=== PATIENT | male | born 1955 | race Caucasian/White ===

== ENCOUNTER 2017-03-14 21:02 | Observation (INO) ==
--- NOTE | 2017-03-14 21:37 | Emergency Department Note ---
Disposition Clinical Impression: Recent inferior myocardial infarction Disposition: Admitted As Inpatient Condition: Good Time of Disposition: 22:00 Chest Pain HPI - General Chief Complaint: ED General Medical Stated Complaint: Urgent Care URI / OR Time Seen by Provider: 03/14/17 21:12 Source: patient Limitations: no limitations Vital Signs Reviewed: Yes Nursing Notes Reviewed: Yes - History of Present Illness HPI Narrative: Pt had chest pain around 1 am on Tuesday morning at rest; he had pain in his mild b/l chest and right jaw for 30 mins and no subsequent sx; no such sx prior or since that time; over the weekend he had a dry cough/body aches and a fever which resolved today............but his family told him to get seen today due to his sx on Tuesday; no prior stress test or heart cath; pt is a smoker;will perform screening labs ; ekg shows no acute injury pattern; pt will at least require a stress test; I discussed w/ pt his options for admission and further eval stress testing vs outpt manamgement w/ all risks/benefits discussed, and pt opts for close outpt mngmt and agrees to return to ER immediately for any add 'l sx or concerns; Duration: now resolved Onset: during rest Pain Location: substernal Severity: mild Severity scale (1-10): 0 Quality: tightness Pain Radiation: none Improves with: nothing Worsens with: nothing Context: recent illness Associated symptoms: Denies: nausea, vomiting, diaphoresis, dyspnea, sense of impending doom, syncope, palpitations, leg swelling - Related Data Home Medications Medication Instructions Recorded Confirmed No Known Home Drugs 03/14/17 03/14/17 Allergies Allergy/AdvReac Type Severity Reaction Status Date / Time Sulfa (Sulfonamide Allergy Hives Verified 02/27/16 09:47 Antibiotics) Constitutional: Reports: as per HPI Eyes: Denies: eye pain, eye discharge, vision change ENT ED: Denies: ear pain, throat pain, dental pain, hearing loss, epistaxis, congestion, dysphagia Cardiovascular: Reports: as per HPI, chest pain Respiratory: Denies: cough, dyspnea, wheezes, hemoptysis, stridor Gastrointestinal: Denies: abdominal pain, nausea, vomiting, diarrhea, constipation, hematemesis, melena, hematochezia Genitourinary: Denies: urgency, dysuria, frequency, hematuria Musculoskeletal: Denies: back pain, neck pain, arthralgia, myalgia Integumentary: Denies: rash, abrasion, lesions Neurological: Denies: headache, weakness, numbness, paresthesias, confusion, abnormal gait, vertigo Psychiatric: Denies: anxiety, depression, suicidal thoughts, homicidal thoughts , auditory hallucinations, visual hallucinations Endocrine: Denies: fatigue Hematological/Lymphatic: Denies: easy bleeding, easy bruising Allergic/Immunologic: Denies: facial swelling, urticaria Chest Pain PMH - Past Medical History Medical history: Reports: asthma Psychiatric history: Reports: no psych history - Social History Smoking Status: Current every day smoker Alcohol use: Reports: none Drug use: Reports: none Physical Exam - General Limitations: no limitations General appearance: alert, in no apparent distress - Head Head exam: atraumatic, normocephalic, normal inspection - Eye Eye exam: Present: normal appearance, PERRL, EOMI - Expanded Eye Exam Pupils: Left: reactive - ENT ENT exam: normal exam, normal oropharynx, mucous membranes moist - Expanded ENT Exam External ear exam: Present: normal external inspection Mouth exam: Present: normal external inspection Teeth exam: Present: normal inspection Throat exam: Present: normal inspection - Neck Neck exam: Present: normal inspection, full ROM, trachea midline - Chest Chest inspection: Present: normal inspection, symmetric chest wall rise - Respiratory Respiratory exam: Present: normal lung sounds bilaterally - Cardiovascular Cardiovascular exam: Present: regular rate, normal rhythm, normal heart sounds - Abdominal Exam Abdominal exam: Present: soft, Non-Tender. Absent: tenderness, distention, guarding, rebound, rigidity - Extremities Exam Extremities exam: Present: normal inspection, full ROM. Absent: tenderness, pedal edema - Expanded Upper Extremity Exam Shoulder exam: Present: normal inspection, full ROM Arm exam: Present: normal inspection, full ROM Elbow exam: Present: normal inspection, full ROM Forearm/Wrist exam: Present: normal inspection, full ROM Hand exam: Present: normal inspection, full ROM Vascular exam: Normal: capillary refill, radial pulse - Expanded Lower Extremity Exam Hip/Pelvis exam: Present: normal inspection, full ROM Upper leg exam: Present: normal inspection, full ROM Knee exam: Present: normal inspection, full ROM Lower leg exam: Present: normal inspection, full ROM Ankle exam: Present: normal inspection, full ROM Foot/toe exam: Present: normal inspection, full ROM Neurovascular/Tendon exam: Absent: motor deficit, sensory deficit, tendon deficit - Back Exam Back exam: Present: normal inspection, full ROM. Absent: tenderness - Neurological Exam Neurological exam: Present: alert, oriented X3 - Expanded Neurological Exam Patient oriented to: Present: person, place, time Coma Scale Eye Opening: Spontaneous Coma Scale Motor Response: Obeys Commands Coma Scale Verbal Response: Oriented Coma Scale Total: 15 - Psychiatric Psychiatric exam: Present: normal affect, normal mood - Skin Skin exam: Present: warm, dry, intact, normal color Course Course Narrative: Pt has been pain free for 3 days Accepted to floor by Dr Nina @ 10:22 pm; ASA and plavix ordered Vital Signs Temperature 98.0 F 03/14/17 21:04 Pulse Rate 80 03/14/17 21:04 Respiratory Rate 18 03/14/17 21:04 Blood Pressure 123/77 03/14/17 21:04 O2 Sat by Pulse Oximetry 98 03/14/17 21:04 Temperature 99.3 F 03/15/17 04:02 Pulse Rate 70 03/15/17 04:02 Respiratory Rate 16 03/15/17 04:02 Blood Pressure 116/80 03/15/17 04:02 O2 Sat by Pulse Oximetry 93 03/15/17 04:02 Oxygen Delivery Oxygen Delivery Room Air Chest Pain - Lab Data Result diagrams: 03/15/17 03:26 03/14/17 21:39 Lab Results 03/14/17 03/14/17 03/14/17 Range/Units 21:39 21:39 21:39 WBC 9.4 (4.3-11.1) K/mcL RBC 5.43 (4.19-5.50) M/mcL Hgb 15.9 (12.9-16.9) g/dL Hct 47.3 (37.5-50.1) % MCV 87.1 (83.0-100.0) fL MCH 29.3 (28.0-33.3) pg MCHC 33.6 (31.6-35.5) g/dL RDW 13.6 (11.5-14.5) % Plt Count 205 (140-400) K/mcL MPV 10.4 (9.4-12.4) fL Immature Plt Fraction 3.8 (1.1-6.1) % Sodium 135 L (136-145) mEq/L Potassium 3.9 (3.5-5.1) mEq/L Chloride 105 (98-107) mEq/L Carbon Dioxide 21 L (23-29) mEq/L BUN 18 (6-20) mg/dL Creatinine 1.03 (0.70-1.30) mg/dL Est GFR ( Amer) > 60 (> 60) Est GFR (Non-Af Amer) > 60 (> 60) BUN/Creatinine Ratio 17 (6-26) Glucose 120 H (70-105) mg/dL Calculated Osmolality 283 (280-300) Calcium 9.0 (8.6-10.3) mg/dL Troponin I 2.74 H* (< 0.04) ng/mL - EKG Data EKG attestation: Yes I reviewed and interpreted this EKG. EKG results narrative: nsr, no acute injury pattern noted; intervals unremarkable EKG shows normal: sinus rhythm Rate: normal Rhythm: NSR
[2017-03-14 21:52] LABS: Hematocrit 47.3 % (37.5-50.1); Hemoglobin 15.9 g/dL (12.9-16.9); Immature Platelets 3.8 % (1.1-6.1); Mean Corpuscular HGB Conc 33.6 g/dL (31.6-35.5); Mean Corpuscular Hemoglobin 29.3 pg (28.0-33.3); Mean Corpuscular Volume 87.1 fL (83.0-100.0); Mean Platelet Volume 10.4 fL (9.4-12.4); Red Blood Count 5.43 M/mcL (4.19-5.50); Red Cell Distribution Width 13.6 % (11.5-14.5)
[2017-03-14 22:11] LABS: BUN/Creatinine Ratio 17 (6-26); Blood Urea Nitrogen 18 mg/dL (6-20); Carbon Dioxide 21 mEq/L (23-29); Chloride 105 mEq/L (98-107); Glucose 120 mg/dL (70-105); Osmolality,Calculated 283 (280-300); Potassium 3.9 mEq/L (3.5-5.1); Sodium 135 mEq/L (136-145); eGFR For African Americans > 60 (> 60); eGFR For Non-African Americans > 60 (> 60)
[2017-03-14] MEDS ORDERED: Aspirin 81 MG TAB.CHEW PO ONE (22:25)
[2017-03-14] MEDS ORDERED: Acetaminophen 325 MG TABLET PO PRN (23:43)
[2017-03-14] MEDS ORDERED: Naloxone 0.4 MG/ML INJ IVP PRN (23:43)
[2017-03-14] MEDS ORDERED: Ondansetron ODT 4 MG TAB.RAPDIS SL PRN (23:43)
[2017-03-14] MEDS ORDERED: 0.9 % Sodium Chloride 1,000 ML IVC SCH (23:45)
[2017-03-15] MEDS ORDERED: *HR* Heparin 5,000 UNIT/ML VIAL IVP ONE (00:34)
[2017-03-15] MEDS ORDERED: Heparin 25,000 UNIT/500 ML D5W 25,000 UNIT/500 ML BAG IVC SCH (00:45)
--- NOTE | 2017-03-15 00:47 | Internal Med History&Physical ---
Date of Encounter: 03/15/17 Time of Encounter: 00:00 Assessment and Plan (1) Recent inferior myocardial infarction Current visit: No Status: Acute Supported by history, EKG findings, and troponin level Likely inferior based on EKG; hold any NO patient started on ACS dose heparin bolus plus drip; all appropriate orders/ labs entered starting and will continue aspirin + Plavix placed order for cardiology consult for catheterization will continue to trend troponins Q6 NPO will obtain lipid panel for further risk stratification (2) Upper respiratory infection Current visit: No Status: Resolved Symptoms described in HPI have since resolved likely viral syndrome -- similar symptoms in close contact no diagnostics or intervention necessary at this time Qualifiers: URI type: unspecified viral URI Qualified Code(s): J06.9 - Acute upper respiratory infection, unspecified (3) Tobacco dependence due to cigarettes Current visit: Yes Status: Acute consider nicotine patch per patient need patient is approximately 1 pack a day smoker for 20 years (4) DVT prophylaxis Current visit: Yes Status: Acute Patient on ACS therapeutic regimen of heparin Internal Medicine - H&P: HPI Chief complaint: chest pain that has since resolved Admitted From: Emergency Dept Plans for Post Hospital Care: Home History of present illness: Mr. Mccoy is a 61 year old male with 20 pack your history smoking and otherwise known on medical history who presents to the emergency department for recent history of retrosternal chest pressure. Patient denies any other known conditions including previous myocardial infarction, CHF, COPD, hyperlipidemia, diabetes mellitus, or any other ongoing medical conditions. Patient states on Tuesday night/Tuesday morning, began to feel a highly intense retrosternal chest pressure the pelican elephant sitting on his chest. Patient also described radiating sensations into bilateral Mo into his left arm. Patient did not have a diaphoresis, syncope, lightheadedness, tearing sensation , sharp sensation, shortness of breath, cough, wheeze, nausea, vomiting, or leg swelling. Patient states woke up the next day, Tuesday, feeling like he had the flu. Patient describes feeling febrile, sweaty, had significant amount of rhinorrhea, and had muscle aches all over. At that point, patient had no ongoing chest pains. Patient was asymptomatic today, but at the insistence of his family, was seen at an urgent care clinic and later referred to the emergency department. Emergency department work up demonstrated EKG with Q-waves in inferior leads as well as an elevated troponin at 2.74. Again, patient was completely astigmatic throughout emergency department work up. At this time, patient states he feels 100% better has no further ongoing symptoms including flulike symptoms were chest pressure. Discussed with Dr. Ruiz, emergency resident, and will admit patient for ongoing assessment of likely completed myocardial infarction. Patient will need monitoring and cardiac cath. Past Med Surg Social Fam HX - Past Medical History Attestation: Yes The following information was validated with the patient. Medical history: no medical history, asthma Psychiatric history: no psych history - Social History Smoking Status: Current every day smoker Smokeless Tobacco Status: No Alcohol use: none Drug use: none Internal Medicine - H&P: Meds No Known Home Drugs 03/14/17 [History] 3 Allergy/AdvReac Type Severity Reaction Status Date / Time Sulfa (Sulfonamide Allergy Hives Verified 02/27/16 09:47 Antibiotics) All Systems PM: A 10-system review of systems was performed and is negative for pertinent findings except as documented above in the HPI. Review of systems: see HPI - Constitutional Vitals: Temp Pulse Resp BP Pulse Ox 98.0 F 80 18 123/77 98 03/14/17 21:04 03/14/17 21:04 03/14/17 21:04 03/14/17 21:04 03/14/17 21:04 Exam: CONSTITUTIONAL: Alert and oriented X3, well-nourished, well appearing, in no apparent distress HEAD: Normocephalic; atraumatic. EYES: PERRL, no scleral icterus, no drainage, no conjunctival injection NOSE: The nose is normal in appearance without rhinorrhea Oropharynx: pink/moist, no tonsillar edema/erythema/exudates RESP: NRD without use of accessory musculature, CTA b/l with no wheezes/rales/ rhonchi CARD: Regular rhythm, without murmurs, rubs, or gallop ABD: grossly normal, soft, non-tender, no guarding/distention/rigidity SKIN: normal appearance, no pallor/diaphoresis,mottling,jaundice,cyanosis EXT: DP/Rad pulses 2+ and symmetrical; no lateralizing edema; no other lesions seen PSYCH: appropriate mood/affect Internal Med - H&P Results - Labs CBC & Chem 7: 03/14/17 21:39 03/14/17 21:39
[2017-03-15] MEDS: 0.9 % Sodium Chloride 1,000 ML IVC SCH ×2 (02:01→12:36)
[2017-03-15 03:39] LABS: Hematocrit 44.3 % (37.5-50.1); Immature Platelets 3.1 % (1.1-6.1); Mean Corpuscular HGB Conc 33.9 g/dL (31.6-35.5); Mean Corpuscular Hemoglobin 29.2 pg (28.0-33.3); Mean Corpuscular Volume 86.2 fL (83.0-100.0); Mean Platelet Volume 10.1 fL (9.4-12.4); Red Blood Count 5.14 M/mcL (4.19-5.50); Red Cell Distribution Width 13.5 % (11.5-14.5)
[2017-03-15 03:49] LABS: INR 1.2; Prothrombin Time 13.2 Seconds (9.4-12.1)
[2017-03-15 03:54] LABS: Activated Partial Thrombo Time 24.3 Seconds (26.0-36.0)
[2017-03-15 04:10] LABS: Chol/HDL Ratio 7.2 (0-4.9)
--- NOTE | 2017-03-15 08:35 | Cardiology Consult Note ---
<SarbjitzullyEleanor lovell - Last Filed: 03/15/17 10:54> Date of Encounter: 03/15/17 Time of Encounter: 08:35 Assessment and Plan (1) NSTEMI (non-ST elevated myocardial infarction) Current Visit: Yes Status: Acute Patient with 45 minute episode of chest pain, radiation, and dyspnea on Tuesday which subsided. ECG demonstrating q waves in inferior leads. Troponin sustained elevation, (2.74, 2.91, 3.52). -Patient NPO -Patient on dual anti-platelet with ASA and Plavix -ACS dose heparin drip -Echo 03/15/2017 LVEF 50-55% mild left ventricular diastolic dysfunction, normal right ventricular structure and function, no significant valvular dysfunction no pulmonary hypertension. No previous studies to compare. -Patient to [facility] today. (Reaction to dye in 1977 unlikely allergic, c/w normal irritation upon IV contast, patient with no documented shellfish allergies). -LDL 126, HDL 25 on lipid panel. -Patient started on optimal medical therapy including coreg, rosuvastatin, and ASA. (2) Recent inferior myocardial infarction Current Visit: Yes Status: Acute Patient with evidence of recent inferior PA on ECG corroborated by history. -Sustained elevated troponins. -[facility] today as per above. (3) Tobacco dependence due to cigarettes Current Visit: Yes Status: Acute Patient with 20 year pack history. Patient indicates he is quitting. No cigarettes in 3-4 days. -Does not want NRT at this point. Discussion w patient/family: The assessment and plan as outlined above was discussed with the patient and/or family members who expressed understanding and agreement. All questions were answered. Thank you for involving us in the care of your patient. Please call with any questions. History of Present Illness Consult date: 03/14/17 Requesting physician: Wilfredo Johns Consult reason: NSTEMI/Recent inferior STEMI Chief complaint: Shortness of breath, chest pain/pressure with radiation History of present illness: Mr. Mccoy is a 61 year old male with PMHx of tobacco abuse who presented to [facility] on 03/14/2017 with resolving chest pain and pressure. Per patient, on tuesday , he experienced approximately 45 minutes of retrosternal cest pain and pressure that radiated into his jaw and left arm. He states he was relaxing watching TV when his symptoms began. He states he had a cold sweat at the time, but denied nausea. After his chest pain resolved, he states he developed a fever with myalgias. He reported a productive cough as well as a significant amount of rhinorrhea. He reports feeling almost 70% better on Tuesday, however, at the request of his loved ones, he presented to urgent care, at which point he was transferred here for chest pain work up. Patient did take aspirin during symptoms on Tuesday. He denies any invasive or ischemic cardiac workup in the past. He does report a remote (1977) history of an adverse reaction to a dye during imaging undertaken during an episode of kidney stones. He describes this as burning and stinging during dye infusion. He denies rash or shortness of breath during this episode. Past Med Surg Social Fam HX - Past Medical History Attestation: Yes The following information was validated with the patient. Source: patient Medical history: asthma Psychiatric history: no psych history - Social History Smoking Status: Current every day smoker Packs per day: 1 Smokeless Tobacco Status: No Alcohol use: none Drug use: none Medications and Allergies No Known Home Drugs 03/14/17 [History] 3 Allergy/AdvReac Type Severity Reaction Status Date / Time Sulfa (Sulfonamide Allergy Hives Verified 02/27/16 09:47 Antibiotics) All Systems Review: A 10-system review of systems was performed and is negative for pertinent findings except as documented above in the HPI. - Constitutional Constitutional: no fever(s), no frequent falls, no weakness - Cardiovascular Cardiovascular: chest pain at rest, diaphoresis, dyspnea at rest, radiating jaw , neck or arm pain, no leg edema, no lightheadedness, no rapid heart rate - Respiratory Respiratory: cough, no wheezing - Gastrointestinal Gastrointestinal: no constipation, no diarrhea, no hematemesis, no hematochezia Physical Examination Vital Signs, Last 4 Hours Temp Pulse Resp BP Pulse Ox 03/15/17 08:01 98.4 F 79 17 126/84 93 General: Conversant, No Apparent Distress HEENT: Atraumatic, Normocephaly, Mucus Membranes Moist Neck: No JVD, Normal carotid pulses Cardiac: Reg Rate and Rhythm, Normal S1 and S2 Lungs: Normal Breath Sounds, No Wheeze, Rales, Rhonchi Neuro: Alert and responsive, No focal deficits noted Abdomen: Soft, Non-Tender Skin: No rashes noted on visualized skin Extremities: No Clubbing, No Cyanosis, No Edema Results 03/15/17 03:26 03/14/17 21:39 Lab Results 03/15/17 03/15/17 03/15/17 03:26 03:26 03:26 WBC 8.0 Hgb 15.0 Hct 44.3 Plt Count 186 INR 1.2 APTT 24.3 L Troponin I 2.91 H* Consult Discharge Plan - Plan Referrals: NONE,PCP [Primary Care Provider] - <Duncan Ardon - Last Filed: 03/15/17 22:07> Date of Encounter: 03/15/17 - Attending Attestation I examined this patient and my medical decision-making was reviewed with the Resident Physician. I agree with the documented findings, disposition and treatment plan as described except to the extent set forth below. CC: Chest pain Pt reports sudden onset of mid sternal chest pain, severe, 9/10, crushing weight in middle of his chest, occurred at rest, associated with shortness of breath and diaphoresis, lasted 45 mins, resolved spontaneously, associated with fatigue on 03/11/2017. He has felt tired and washed out since that event. He is experiencing flu like symptoms over the last three days. He also reports increased fatique and shortness of breath since he had the episode of chest pain. He is currently pain free. PE; Alert, orientated x 3, is a reliable historian HEENT: normocephalic, NICOLE, EOMI, no carotid bruits Lungs: scattered rhonchi, improve with cough, but do not resolve Heart: RRR at 88 bpm, no murmur Abdomen: soft, flat, BS x 4, no pulsitile masses Ext: no edema Nuero: intact, for focal deficit Labs: troponins elevated: 2.74, 2.91 and 3.52 IMP: 1. NSTEMI, appears occurred on or about 03/11/2017, discussed options, recommend LHC/poss, to determine cardiac anatomy for possible revascularization, risks and benefits discussed, pt agrees to proceed. Will schedule for later today. 2. Viral upper respiratory tract infection, improved 3. Asthma - controlled 4. Tobacco abuse, current everyday smoker, agrees to smoking cessation, declines pharmocologic support. Assessment and Plan Discussion w patient/family: The assessment and plan as outlined above was discussed with the patient and/or family members who expressed understanding and agreement. All questions were answered. Thank you for involving us in the care of your patient. Please call with any questions. History of Present Illness History of present illness: Mr. Mccoy is a 61 year old male All Systems Review: A 10-system review of systems was performed and is negative for pertinent findings except as documented above in the HPI. Physical Examination Vital Signs, Last 4 Hours Temp Pulse Resp BP Pulse Ox 03/15/17 08:01 98.4 F 79 17 126/84 93 Results 03/15/17 03:26 03/14/17 21:39 Lab Results 03/15/17 03/15/17 03/15/17 03:26 03:26 03:26 WBC 8.0 Hgb 15.0 Hct 44.3 Plt Count 186 INR 1.2 APTT 24.3 L Troponin I 2.91 H* 03/15/17 03/15/17 09:59 09:59 WBC Hgb Hct Plt Count INR APTT 35.6 Troponin I 3.52 H*
[2017-03-15] MEDS: Aspirin 81 MG TAB.CHEW PO SCH (10:51)
[2017-03-15] MEDS ORDERED: *HR* Heparin 5,000 UNIT/ML VIAL IVP PRN (11:08)
[2017-03-15] MEDS ORDERED: 0.9 % Sodium Chloride 1,000 ML ONE ×2 (12:19→12:34)
[2017-03-15] MEDS ORDERED: Heparin 1,000 UNITS/500 mL 500 ML ONE (12:19)
[2017-03-15] MEDS ORDERED: Nitroglycerin 1,000 MCG/10 ML VIAL IV ONE (12:20)
[2017-03-15] MEDS ORDERED: *HR* Heparin 10,000 UNIT/10 ML VIAL ONE (12:20)
--- NOTE | 2017-03-15 13:14 | Pre-Sedation Evaluation ---
Pre-sedation evaluation - Pre-sedation checklist Date of procedure: 03/15/17 Procedure: [facility] Recent Vitals: Last Vital Signs Temp 98.4 F 03/15/17 11:57 Pulse 78 03/15/17 11:57 Resp 17 03/15/17 11:57 BP 143/92 03/15/17 11:57 Pulse Ox 92 03/15/17 11:57 H&P (including ROS) documented in medical record: Yes Previous reaction to sedatives/anesthetics: No Dietary Status: NPO after Midnight Airway Assessment: Patient can open mouth completely, TMJ function normal, Micrognathia (under-bite, receding chin) absent, Neck with adequate range of motion Dentition: dentures removed Possible difficult airway: No ASA Classification *see protocol: CLASS II-Mild systemic disease Plan of Care: Pt appropriate candidate for procedure/moderate/conscious sedation , Risks/benefits of procedure/sedation discussed w/ patient/family
[2017-03-15] MEDS ORDERED: *HR* FentaNYL (PF) 100 MCG/2 ML VIAL ONE (13:51)
[2017-03-15] MEDS ORDERED: *HR* Midazolam HCl 2 MG/2 ML VIAL ONE (13:51)
[2017-03-15] MEDS ORDERED: Nitroglycerin 0.4 MG TAB.SUBL SL PRN (14:51)
[2017-03-15] MEDS ORDERED: 0.9 % Sodium Chloride 1,000 ML IVC SCH (15:00)
[2017-03-15] MEDS ORDERED: *HR* Bivalirudin 250 MG VIAL IVC ONE (15:17)
--- NOTE | 2017-03-15 15:57 | Internal Med Progress Note ---
Date of Encounter: 03/15/17 Time of Encounter: 10:15 - Assessment and plan (1) NSTEMI (non-ST elevated myocardial infarction) Current Visit: Yes Status: Acute Assessment and plan: The patient presented with 45 minute episode of chest pain with radiation to jaw and right arm and dyspnea on Tuesday which spontaneously subsided. EKG independently red demonstrates Q waves indicative of inferior MO. Troponin levels are elevated (2.74, 2.91, 3.52). Echo demonstrated left ventricular ejection fraction of 50-55% with mild left ventricular diastolic dysfunction and no abnormal wall segment motion. Left heart catheter demonstrated double vessel coronary artery disease with moderate to severe left ventricular dysfunction ejection fraction of 40%. The patient had successful PTCA/drug eluding stent placement in the mid RCA and proximal LAD. Cardiology recommends risk factor modification. Patient is advised to quit smoking. Continue with Coreg 3.125 mg by mouth twice a day, Plavix 75 mg by mouth daily, Crestor 40 mg by mouth daily at bedtime, baby aspirin. Continue telemetry monitoring. Monitor with a.m. labs. (2) DVT prophylaxis Current Visit: Yes Status: Acute Assessment and plan: Continue heparin and for DVT prophylaxis. (3) Tobacco dependence due to cigarettes Current Visit: No Status: Acute Assessment and plan: Patient is strongly recommended to discontinue nicotine use. Follow-up outpatient. - Time Spent With Patient 25 - 35 minutes - Subjective Interval history: 61-year-old male chronic smoker of 20 pack years with no significant past medical history please send fluid bilateral chest and right jaw pain that lasted 45 minutes which no subsequence symptoms. She reports that he had cough and body aches with fever before his admission which spontaneously resolved. At ED, troponins were elevated. EKG is independently read q waves indicative of inferior myocardial infarction. Echocardiogram demonstrated ventricular ejection fraction of 50-55% with mild left ventricular diastolic dysfunction and normal segmental wall motion. Left heart catheter confirmed two-vessel coronary artery disease. Patient reports improvement of chest pain and jaw pain. Denies any headaches, vision changes, shortness of breath, cough, arm weakness, abdominal pain, diaphoresis, diarrhea, constipation. Patient is currently doing well and has no complaints. - Constitutional Vitals: Temp Pulse Resp BP Pulse Ox 98.4 F 78 17 143/92 92 03/15/17 11:57 03/15/17 11:57 03/15/17 11:57 03/15/17 11:57 03/15/17 11:57 General appearance: Present: A&O X 3, answers questions appropriately - Head Head exam: Present: atraumatic, normocephalic - Eye Eye exam: Present: normal appearance - ENT ENT exam: Present: mucous membranes moist - Neck Neck exam general surgery: Present: full ROM, supple, trachea midline - Respiratory Respiratory exam: Present: CTAB. Absent: rales, rhonchi, wheezes - Cardiovascular Cardiovascular exam: Present: RRR, +S1, +S2 - GI/Abdominal GI/Abdominal exam: Present: normal bowel sounds, soft, tenderness, no peritoneal signs. Absent: guarding - Extremities Exam Extremities exam: Present: full ROM, warm, radial pulses palpable and symmetrical. Absent: tenderness - Neurological Exam Neurological exam: Present: altered, CN II-XII intact, oriented X3. Absent: facial droop, speech deficit - Skin Skin exam: Present: intact, warm. Absent: diaphoretic Internal Medicine: Result - Labs CBC & Chem 7: 03/15/17 03:26 03/14/17 21:39 Labs: Short CBC 03/15/17 Range/Units 03:26 WBC 8.0 (4.3-11.1) K/mcL Hgb 15.0 (12.9-16.9) g/dL Hct 44.3 (37.5-50.1) % Plt Count 186 (140-400) K/mcL Cardiac Enzymes 03/15/17 03/15/17 Range/Units 03:26 09:59 Troponin I 2.91 H* 3.52 H* (< 0.04) ng/mL - ABG Interpretation ABG results: PT/INR, D-dimer PT 13.2 Seconds (9.4-12.1) H 03/15/17 03:26 - Impressions Impressions Echocardiogram 03/15/17 05:18 Impressions: LVEF 50-55%. Mild left ventricular diastolic dysfunction. Normal right ventricular structure and function. No significant valvular dysfunction. No pulmonary hypertension. Left Ventricular Wall Motion: Rest Echo Findings All wall segments showed normal motion. Findings: Study Quality * Technically adequate exam. ECG Findings * Normal sinus rhythm. Left Ventricle * LVEF 50-55%. * Normal LV size. * LV wall thickness measurements not well obtained. * Mild left ventricular diastolic dysfunction. Right Ventricle * Normal right ventricular structure and function. Left Atrium * Normal left atrial size. Right Atrium * Normal right atrial size. Aortic Valve * Trileaflet aortic valve. * No aortic stenosis. * Trace aortic regurgitation. Mitral Valve * Normal mitral valve structure. * No mitral regurgitation. * No mitral stenosis. Tricuspid Valve * Tricuspid valve not well visualized. * No tricuspid regurgitation. * Estimated RA pressure is 3 mmHg. Pulmonic Valve * Pulmonic valve is not well visualized. * No pulmonic stenosis. * Trace pulmonic regurgitation. Pulmonary Artery * Pulmonary artery not well visualized. Aorta * Normally sized aortic root. Pericardium * There is no pericardial effusion present. Interatrial Septum * No evidence of PFO by color Doppler. IVC * Normal IVC dimensions and inspiratory collapse. Consult Discharge Plan - Plan Referrals: NONE,PCP [Primary Care Provider] -
[2017-03-16 04:11] LABS: Basophils % 0.5 %; Eosinophils # 0.3 K/mcL (0.0-0.6); Eosinophils % 3.1 %; Hematocrit 44.4 % (37.5-50.1); Hemoglobin 14.9 g/dL (12.9-16.9); Immature Granulocytes % 0.2 % (0-4); Lymphocytes # 1.7 K/mcL (0.6-4.6); Lymphocytes % 21.3 %; Mean Corpuscular HGB Conc 33.6 g/dL (31.6-35.5); Mean Corpuscular Volume 86.5 fL (83.0-100.0); Mean Platelet Volume 9.9 fL (9.4-12.4); Monocytes # 0.9 K/mcL (0.0-1.3); Monocytes % 10.6 %; Neutrophils # 5.2 K/mcL (1.6-8.9); Platelet Count 219 K/mcL (140-400); Red Blood Count 5.13 M/mcL (4.19-5.50); Red Cell Distribution Width 13.4 % (11.5-14.5); Segmented Neutrophils % 64.3 %
[2017-03-16 04:23] LABS: BUN/Creatinine Ratio 12 (6-26); Blood Urea Nitrogen 12 mg/dL (6-20); Calcium 8.3 mg/dL (8.6-10.3); Carbon Dioxide 22 mEq/L (23-29); Chloride 107 mEq/L (98-107); Glucose 121 mg/dL (70-105); Osmolality,Calculated 283 (280-300); Potassium 4.1 mEq/L (3.5-5.1); Sodium 136 mEq/L (136-145); eGFR For African Americans > 60 (> 60); eGFR For Non-African Americans > 60 (> 60)
[2017-03-16 07:39] VITALS: BP 106/69
--- NOTE | 2017-03-16 07:43 | Invasive Diagnostic Lab Proc ---
Name: Gonzales Mccoy Date of Study: 03/15/2017 Date: 1955 Ht: 74.0in Medical Record#: [id number] Age: 61 Wt: 199.96lb Gender: Male BSA: 2.17 Order #: [id number] BMI: 25.66 Physicians Procedure Physician: Lorenza Moreira MD, [facility] Referring MD: Referring MD: Staff Name Position Time In [place], Elbert MEYER Pot Holder Binder 01:52 PM Melly Null RT (R) Monitor 01:52 PM Bernardo Mccoy RT (R) Scrub 01:52 PM Indications Indication Non-Stemi Procedures Performed Procedure L HRT ARTERY/VENTRICLE ANGIO PRQ CARD NARINDER STENT W/ANGIO 1 VSL PRQ CARD NARINDER STENT W/ANGIO 1 VSL Pre-Procedure Checklist Pt not NPO for procedure and MD aware. Plan of Care Patient will tolerate the procedure without complications. Adequate level of comfort will be maintained. Hemodynamics will remain stable Patient will recover from procedure without complications. Respiratory function will be maintained. Cardiac rhythm will remain stable. Patient temperature will be maintained. Patient and/or family have verbalized understanding of the procedure. Patient Education Chief Complaint/Reason for Test: Cardiac Cath Developmental Category: Adult (18-64 years) Developmentally Appropriate for Age: Yes Learning Barriers: None Education Needs: Procedure Education Method: Verbal Information Taught: Cardiac Cath Educational Evaluation: Able to repeat information Intravenous Access Time IV Size Location DC'd Fluid/Drip Rate Units RN 20g 1 1/" Patent On Arrival Lt Arm Allergies Sulfa (Sulfonamide Antibiotics) Vital Signs Time BP (mmHg) HR (bpm) O2 Sat. RR (bpm) LOC 126 / 84 79 17 % 20 01:53 PM / % 5 = Fully awake and oriented or at pre-proc level 01:53 PM / % 5 = Fully awake and oriented or at pre-proc level 01:54 PM / % 4 = Oriented but drowsy 02:09 PM / % 4 = Oriented but drowsy 02:24 PM / % 5 = Fully awake and oriented or at pre-proc level 02:39 PM / % 5 = Fully awake and oriented or at pre-proc level 02:58 PM 113 / 83 63 97 % 14 5 = Fully awake and oriented or at pre-proc level 01:52 PM 136 / 81 69 96 % 16 01:57 PM 120 / 77 75 93 % 14 02:02 PM 125 / 78 70 93 % 12 02:07 PM 129 / 76 71 90 % 18 02:12 PM 120 / 80 72 91 % 22 02:17 PM 103 / 69 75 88 % 20 02:22 PM 109 / 68 78 87 % 17 02:27 PM 112 / 75 70 88 % 13 02:32 PM 122 / 75 69 90 % 23 02:37 PM 125 / 74 70 89 % 03:19 PM 145 / 92 62 92 % 16 5 = Fully awake and oriented or at pre-proc level 03:30 PM 110 / 86 65 93 % 18 5 = Fully awake and oriented or at pre-proc level 03:45 PM 115 / 85 63 92 % 16 5 = Fully awake and oriented or at pre-proc level 04:00 PM 128 / 91 67 92 % 18 5 = Fully awake and oriented or at pre-proc level 04:15 PM 124 / 85 61 95 % 17 5 = Fully awake and oriented or at pre-proc level 04:30 PM 123 / 85 66 93 % 18 5 = Fully awake and oriented or at pre-proc level 04:45 PM 116 / 80 61 93 % 16 5 = Fully awake and oriented or at pre-proc level 04:55 PM 117 / 77 58 % 05:00 PM 108 / 70 59 % 05:05 PM 108 / 74 61 % 05:10 PM 114 / 78 57 % 04:56 PM 122 / 72 64 93 % 15 5 = Fully awake and oriented or at pre-proc level Procedural Medications Time Medication Dose Units Method Given By 01:52 PM Oxygen 2 L/min nasal cannula Elbert Cross RN 01:54 PM Versed 2 mg Intravenous Elbert Cross RN 01:54 PM Versed 50 mg Intravenous Elbert Cross RN 02:00 PM Benadryl 25 mg Intravenous Elbert Cross RN 02:00 PM Lidocaine 2% 18 ml Subcutaneous Lorenza Moreira MD, FACC 02:09 PM Angiomax 0.75mg/kg bolus: 13.5 ml Intravenous Elbert Cross RN 02:13 PM Angiomax 1.75mg/kg/hr: 31.5 ml Intravenous Elbert Cross RN 02:14 PM Nitroglycerin 200 mcg Intravenous Elbert Cross RN 02:20 PM Nitroglycerin 200 mcg Intravenous Lorenza Moreira MD, FACC 02:33 PM Fentanyl 25 mcg Intravenous [place], Elbert RN 02:33 PM Nitroglycerin 200 mcg Intravenous Elbert Cross RN 02:35 PM Plavix 300 mg 300 Elbert Cross RN 03:40 PM Tylenol 650 mg Orally Briana Aparicio RN ASA Classification: CLASS II- Mild systemic disease (i.e. well-controlled diabetes, hypertension, asthma, cigarette smoking) Jae Score Preprocedure Postprocedure Activity 2- Moves 4 extremities sustained head lift Activity 2- Moves 4 extremities sustained head lift Circulation 2- SBP +/= 20 points of pre-anesthetic level Circulation 2- SBP +/= 20 points of pre-anesthetic level Consciousness 2- Awake and alert oriented x 3 Consciousness 2- Awake and alert oriented x 3 O2 Saturation 2- Able to maintain O2 satruation of 92% on room air O2 Saturation 2- Able to maintain O2 satruation of 92% on room air Respiratory 2- Able to deep breathe and cough well Respiratory 2- Able to deep breathe and cough well Total Score 10 Total Score 10 Contrast Agent: Isovue Diagnostic Contrast: 162 ml Total Contrast: 162 ml Fluoro Dose: 925 mGy Procedure Log Time Note Enter By 01:52 PM CathStat :52 PM Vitals capture started with the following parameters, Patient=Adult, Interval=5 min, Initial Dvcbizxp=386 mmHg, Deflation Rate=5 mmHg, Cuff placed on Right Arm 01:52 PM Pt arrived to crime lab analyst 2 at 13:52 [facility] :52 PM Elbert Cross RN Position: Pot Holder Binder Time in: 13:52 :52 PM Melly Null RT (R) Position: Monitor Time in: :52 [facility]:52 PM Bernardo Mccoy RT (R) Position: Scrub Time in: 13:52 [facility]:52 PM Patient charges- Angio tray pack, Navilyst 3mm J, Pulse Oximetry and ACIST tubing and transducer :52 PM Hair removed from procedure site in procedure lab using clippers. Bilateral groin prepped with Chloraprep by Melly Null RT (R), safety strap applied then patient was draped. Skin intact. :52 PM Physician arrived 13:52 [facility] :52 PM Marcellus completed [facility] :52 PM Sign in performed according to hospital policy. [facility] Procedure start 13:[facility] PM HR=69 bpm, LCKE=694/81 mmhg, SpO2=96.0 %, Resp=16 B/min, Comment=NSR 01:52 PM Case Start 01:52 PM Time: 13:52 Oxygen on at 2 L/min per nasal cannula by Elbert Cross RN [facility] PM Time: 13:52 Patient comfortable and pain free: Yes [facility] PM Time: 13:53LOC: 5 = Fully awake and oriented or at pre-proc level [facility] PM Time: 13:53 Patient comfortable and pain free: Yes [facility] Time: 13:53LOC: 5 = Fully awake and oriented or at pre-proc level [facility] PM Clinical Presentation: [facility] PM Time: 13:54 Versed 2 mg Intravenous Given by [facility] :[facility] PM Time: 13:54 Versed 50 mg Intravenous Given by Elbert Cross RN [facility] :55 PM Pressure channel 1 zeroed. 01:55 PM ASA Class CLASS II- Mild systemic disease (i.e. well-controlled diabetes, hypertension, asthma, cigarette smoking) 01:57 PM HR=75 bpm, TFDN=805/77 mmhg, SpO2=93.0 %, Resp=14 B/min, Comment=NSR 01:59 PM Time out performed according to hospital policy 02:00 PM Time: 14:00 Benadryl 25 mg Intravenous Given by Elbert Cross RN [facility] 02: PM Time: 14:00 18 ml Lidocaine 2% to right groin Subcutaneous Given by Lorenza Moreira MD, [facility] 02: PM Access obtained by percutaneous puncture. 5Fr 10cm Terumo [place] sheath placed in right Femoral artery. [id number] dspell 02:01 PM 5Fr FL 4 catheter inserted over the wire [facility] 02: PM 0.035 145cm Navilyst 3mmJ wire [id number] dspell 02: PM LCA angiography performed in multiple views. dsp 02:02 PM HR=70 bpm, SABA=567/78 mmhg, SpO2=93.0 %, Resp=12 B/min, Comment=NSR 02:02 PM Recorded Pressure: Ao, HR=70, Condition=Condition 1 (Aorta) Ao 115/79/95 02:04 PM Catheter removed dspell 02:04 PM 5Fr FR 4 catheter inserted over the wire [facility] dspell 02:04 PM RCA angiography performed in multiple views. dspell 02:04 PM Coronary Dominance: right dspellman 02:05 PM Recorded Pressure: Ao, HR=68, Condition=Condition 1 (Aorta) Ao 120/81/99 02:05 PM Lesion found in Mid RCA. Pre Stenosis: 100 Pre ALVARADO Flow: 0: No Flow/No perfusion dspell 02:06 PM 5Fr Pigtail catheter inserted over the wire [facility] dspell 02:06 PM Catheter selectively placed in left ventricle dspell 02:06 PM Bolus angiogram of left Ventricle complete: 8 ml/sec for a total of 24 mls dspellman 02:06 PM Pressure channel 1 zero failed. 02:07 PM Pressure channel 1 zeroed. 02:07 PM Recorded Pressure: LV, HR=70, Condition=Condition 1 (Left Ventricle) LV 108/10/11 02:07 PM Recorded Pressure: LV, Ao, HR=71, Condition=Condition 1 (Left Ventricle) LV 109/20/23, (Aorta) Ao 108/65/90 02:07 PM HR=71 bpm, OZVN=107/76 mmhg, SpO2=90.0 %, Resp=18 B/min, Comment=NSR 02:08 PM Catheter removed dspell:08 PM Right Coronary, Right Posterior Descending Arteries with Right Posterolateral and Acute Marginal branches with 100 % stenosis. If graft is supplying this area, 0 % stenosis dspell 02:08 PM PCI Status Urgent dspell 02:08 PM PCI Indication: PCI for high risk Non-STEMI or unstable angina dspell:08 PM Time: 13:53 Patient comfortable and pain free: Yes dspell: PM Time: 13:54LOC: 4 = Oriented but drowsy dspell 02:09 PM PCI lesion in Mid RCA. dspell: PM Time: 14:09 Angiomax 0.75mg/kg bolus: 13.5 ml Intravenous Given by Elbert Cross RN Navarrete pump dspell 02:09 PM Sheath exchanged for a 6 Fr 11 cm Cordis Vilma sheath [id number] dspellman 02:09 PM 6Fr JR 4 Cordis guide catheter was used to cannulate the PCI vessel successfully. reused? No dspellman 02:10 PM .014 Prowater 180cm guide wire across target lesion- successful. reused? No dspell 02:10 PM Inflation device was opened. dspell 02:10 PM Recorded Pressure: Ao, HR=73, Condition=Condition 1 (Aorta) Ao 121/61/88 02:11 PM 2.0 mm x 15 mm Emerge Monorail balloon across target lesion- successful. reused? No dspell 02:12 PM HR=72 bpm, RZSZ=130/80 mmhg, SpO2=91.0 %, Resp=22 B/min, Comment=NSR 02:12 PM Balloon inflated @ 14 fabricio for 20 seconds dspell 02:13 PM Time: 14:13 Angiomax 1.75mg/kg/hr: 31.5 ml Intravenous Given by Elbert Cross RN Navarrete pump dspell 02:14 PM Balloon catheter removed intact. dspell 02:14 PM Time: 14:14 Nitroglycerin 200 mcg Intravenous Given by Elbert Cross RN dspell 02:17 PM 3.5mm x 38mm Synergy drug-eluting stent across target lesion- successful Lot #[id number] dspell 02:17 PM HR=75 bpm, UXTV=562/69 mmhg, SpO2=88.0 %, Resp=20 B/min, Comment=NSR 02:18 PM Stent deployed @ 12 fabricio for 30 seconds dspell 02:18 PM Recorded Pressure: Ao, HR=74, Condition=Condition 1 (Aorta) Ao 87/63/75 02:19 PM Stent balloon reinflated @ 16 fabricio for 20 seconds dspell 02:20 PM Stent delivery system removed intact. dspell 02:20 PM Time: 14:20 Nitroglycerin 200 mcg Intravenous Given by Lorenza Moreira MD, [facility] dspell 02:21 PM Recorded Pressure: Ao, HR=76, Condition=Condition 1 (Aorta) Ao 86/54/67 02:22 PM Guide wire removed intact. dspell 02:22 PM Guide catheter removed intact. dspell 02:22 PM HR=78 bpm, NIMV=802/68 mmhg, SpO2=87.0 %, Resp=17 B/min, Comment=NSR 02:24 PM Time: 14:08 Patient comfortable and pain free: Yes dspell:24 PM Time: 14:09LOC: 4 = Oriented but drowsy dspellman 02:24 PM PCI lesion in Mid LAD. Pre Stenosis: 90 Pre ALVARADO Flow: 3: Complete and Brisk Flow/Perfusion dspellman 02:24 PM PCI lesion in Mid LAD. dspell 02:25 PM 6Fr XB LAD 3.5 Cordis guide catheter was used to cannulate the PCI vessel successfully. reused? No dspell:25 PM .014 Prowater 180cm guide wire across target lesion- successful. reused? Yes dspellman :26 PM 2.0 mm x 15 mm Emerge Monorail balloon across target lesion- successful. reused? Yes dspell 02:26 PM Recorded Pressure: Ao, HR=73, Condition=Condition 1 (Aorta) Ao 92/61/75 02:27 PM HR=70 bpm, CHQW=065/75 mmhg, SpO2=88.0 %, Resp=13 B/min, Comment=NSR 02:29 PM Balloon inflated @ 8 fabricio for 20 seconds dspell 02:30 PM Balloon catheter removed intact. dspell 02:31 PM Recorded Pressure: Ao, HR=69, Condition=Condition 1 (Aorta) Ao 111/67/86 02:31 PM 3.0mm x 16mm Synergy drug-eluting stent across target lesion- successful Lot #[id number] dspell 02:32 PM Stent deployed @ 12 fabricio for 30 seconds dspell 02:32 PM HR=69 bpm, ISEO=409/75 mmhg, SpO2=90.0 %, Resp=23 B/min, Comment=NSR 02:33 PM Time: 14:33 Fentanyl 25 mcg Intravenous Given by Elbert Cross RN dspsandoval 02:33 PM Stent delivery system removed intact. dspell 02:34 PM Time: 14:33 Nitroglycerin 200 mcg Intravenous Given by Elbert Cross RN dspsandoval 02:34 PM Guide wire removed intact. dspell 02:34 PM Guide catheter removed intact. dspell 02:35 PM Bolus angiogram of right Femoral complete: 4 ml/sec for a total of 7 mls 02:36 PM Time: 14:35 Plavix 300 mg 300 Given by Elbert Cross RN 02:37 PM HR=70 bpm, KNUU=038/74 mmhg, SpO2=89.0 % 02:39 PM Time: 14:24LOC: 5 = Fully awake and oriented or at pre-proc level :39 PM Time: 14:24 Patient comfortable and pain free: Yes :39 PM Procedure completed at 14:39 dspell:39 PM What is the NYHA Class? Class 2 dspell 02:39 PM Did you address ALVARADO flow and Dominance? Yes ell 02:40 PM Sign out completed: Radiation Dose 924.97 mGy Fluoro Time: 8.7 Isovue 370 - 200ml contrast 162 ml given by Lorenza Moreira MD, FACC. Complications: NoneCardiac Rehab Consult needed: YesConfirmed administered medications: Yes 02:41 PM Lesion found in Proximal RCA. Pre Stenosis: 30 Pre ALVARADO Flow: 3: Complete and Brisk Flow/Perfusion dspell 02:41 PM Lesion found in LMCA. Pre Stenosis: 20 Pre ALVARADO Flow: dspell 02:41 PM Lesion found in Proximal Circumflex. Pre Stenosis: 25 Pre ALVARADO Flow: dspell 02:41 PM Lesion found in Ramus. Pre Stenosis: 20 Pre ALVARADO Flow: dspell 02:42 PM Vitals capture stopped. 02:48 PM Patient out of room: 14:48 dspell 02:48 PM Site status No bleeding/hematoma - Rt Groin as reported by Bernardo Mccoy RT (R) at 14:48 dspell 02:48 PM Opsite applied dspell 02:48 PM Report given to Briana MEYER Pt taken to Holding room Room #3. 14:48 dspell 02:49 PM Delay to floor Yes ell 02:49 PM Family placed in no family available. dspell 02:49 PM Complications: None dspell 02:49 PM Fluoro Time: 8.7 dspellman 02:49 PM Isovue 370 - 200ml contrast 162 ml given by Lorenza Moreira MD, FACC. dspell 02:49 PM Radiation Dose 924.87 mGy dspell 02:50 PM Angiomax off [email or web address] 02:55 PM Time: 14:39 Patient comfortable and pain free: Yes dspell 02:55 PM Time: 14:39LOC: 5 = Fully awake and oriented or at pre-proc level dspell 02:57 PM pt checked into labor conciliator HR 3. [email or web address] 03:18 PM pt voided 450cc dark yellow urine per urinal [email or web address] 04:45 PM Pt resting comfortably, family at bedside. dspell 04:57 PM sheath pulled, manual pressure held by ANAND Cross RN dspell 05:10 PM Site status No bleeding/hematoma - Rt Groin as reported by Elbert Cross RN at 17:09 dspell 05:10 PM Opsite applied dspell 05:25 PM Pt resting comfortably, dspellman 05:26 PM Site status No bleeding/hematoma - Rt Groin as reported by Elbert Cross RN at 17:26 [email or web address] 05:26 PM Opsite applied dspellde soto 05:26 PM Report given to Nishi MEYER Pt taken to 2A Room #23. 17:26 dspellman 05:26 PM Patient [facility] of room: 17:26 [facility] Complications Complication None None Hemodynamics Pressures Site Systolic/A Wave Diastolic/V Wave Mean AO 115 79 95 AO 120 81 99 LV 108 10 11 LV 109 20 23 AO 108 65 90 AO 121 61 88 AO 87 63 75 AO 86 54 67 AO 92 61 75 AO 111 67 86 Post Procedure Information Blood Pressure: 114/78 mmHg Rhythm: NSR Post procedural instructions were given Closure Device Time Device Success/Fail 03/15/2017 5:23:00 PM Manual Compression Successful Site Checks Time Location Status Staff Sheath In? Note 02:48 PM Rt Groin No bleeding/hematoma Bernardo Mccoy RT (R) Yes 02:57 PM Rt Groin No bleeding/ No Hematoma Rizwana Francis RN Yes 03:18 PM Rt Groin No bleeding/ No Hematoma Rizwana Francis RN Yes 03:30 PM Rt Groin No bleeding/ No Hematoma Briana Aparicio RN Yes 03:45 PM Rt Groin No bleeding/ No Hematoma Briana Aparicio RN Yes 04:00 PM Rt Groin No bleeding/ No Hematoma Briana Aparicio RN Yes 04:15 PM Rt Groin No bleeding/ No Hematoma Elbert Cross RN Yes 04:30 PM Rt Groin No bleeding/ No Hematoma Elbert Cross RN Yes 04:45 PM Rt Groin No bleeding/ No Hematoma Elbert Cross RN Yes 04:55 PM Rt Groin No bleeding/ No Hematoma Elbert Cross RN Sheath pulled 05:24 PM Rt Groin No bleeding/ No Hematoma Elbert Cross RN 05:26 PM Rt Groin No bleeding/hematoma Elbert Cross RN 05:09 PM Rt Groin No bleeding/hematoma Elbert Cross RN Pulses Time Site Pre-Procedure Post-Procedure Note Bilateral DP & PT 2+ 03/15/2017 2:57:00 PM Bilateral DP & PT 2+ 03/15/2017 3:19:00 PM Bilateral DP & PT 2+ 03/15/2017 3:45:00 PM Bilateral DP & PT 2+ 03/15/2017 4:15:00 PM Bilateral DP & PT 2+ 03/15/2017 4:55:00 PM Bilateral DP & PT 2+ Updated by Elbert Cross RN on 03/15/2017 5:29:11 PM electronically signed on 03/15/2017 5:29:45 PM with status of Final
--- NOTE | 2017-03-16 07:44 | Invasive Diagnostic Lab Proc ---
Name: Gonzales Mccoy Date of Study: 03/15/2017 Date: 1955 Ht: 74.0in Medical Record#: [id number] Age: 61 Wt: 199.96lb Gender: Male BSA: 2.17 Order #: [id number] BMI: 25.66 Physicians Procedure Physician: Lorenza Moreira MD, [facility] Referring MD: Referring MD: Staff Name Position Time In [place], Elbert MEYER Umbrella Frame Maker 01:52 PM Melly Null RT (R) Monitor 01:52 PM Bernardo Mccoy RT (R) Scrub 01:52 PM Indications Indication Non-Stemi Procedures Performed Procedure L HRT ARTERY/VENTRICLE ANGIO PRQ CARD NARINDER STENT W/ANGIO 1 VSL PRQ CARD NARINDER STENT W/ANGIO 1 VSL Pre-Procedure Checklist Pt not NPO for procedure and MD aware. Plan of Care Patient will tolerate the procedure without complications. Adequate level of comfort will be maintained. Hemodynamics will remain stable Patient will recover from procedure without complications. Respiratory function will be maintained. Cardiac rhythm will remain stable. Patient temperature will be maintained. Patient and/or family have verbalized understanding of the procedure. Patient Education Chief Complaint/Reason for Test: Cardiac Cath Developmental Category: Adult (18-64 years) Developmentally Appropriate for Age: Yes Learning Barriers: None Education Needs: Procedure Education Method: Verbal Information Taught: Cardiac Cath Educational Evaluation: Able to repeat information Intravenous Access Time IV Size Location DC'd Fluid/Drip Rate Units RN 20g 1 1/" Patent On Arrival Lt Arm Allergies Sulfa (Sulfonamide Antibiotics) Vital Signs Time BP (mmHg) HR (bpm) O2 Sat. RR (bpm) LOC 126 / 84 79 17 % 20 01:53 PM / % 5 = Fully awake and oriented or at pre-proc level 01:53 PM / % 5 = Fully awake and oriented or at pre-proc level 01:54 PM / % 4 = Oriented but drowsy 02:09 PM / % 4 = Oriented but drowsy 02:24 PM / % 5 = Fully awake and oriented or at pre-proc level 02:39 PM / % 5 = Fully awake and oriented or at pre-proc level 02:58 PM 113 / 83 63 97 % 14 5 = Fully awake and oriented or at pre-proc level 01:52 PM 136 / 81 69 96 % 16 01:57 PM 120 / 77 75 93 % 14 02:02 PM 125 / 78 70 93 % 12 02:07 PM 129 / 76 71 90 % 18 02:12 PM 120 / 80 72 91 % 22 02:17 PM 103 / 69 75 88 % 20 02:22 PM 109 / 68 78 87 % 17 02:27 PM 112 / 75 70 88 % 13 02:32 PM 122 / 75 69 90 % 23 02:37 PM 125 / 74 70 89 % 03:19 PM 145 / 92 62 92 % 16 5 = Fully awake and oriented or at pre-proc level 03:30 PM 110 / 86 65 93 % 18 5 = Fully awake and oriented or at pre-proc level 03:45 PM 115 / 85 63 92 % 16 5 = Fully awake and oriented or at pre-proc level 04:00 PM 128 / 91 67 92 % 18 5 = Fully awake and oriented or at pre-proc level 04:15 PM 124 / 85 61 95 % 17 5 = Fully awake and oriented or at pre-proc level 04:30 PM 123 / 85 66 93 % 18 5 = Fully awake and oriented or at pre-proc level 04:45 PM 116 / 80 61 93 % 16 5 = Fully awake and oriented or at pre-proc level 04:55 PM 117 / 77 58 % 05:00 PM 108 / 70 59 % 05:05 PM 108 / 74 61 % 05:10 PM 114 / 78 57 % 04:56 PM 122 / 72 64 93 % 15 5 = Fully awake and oriented or at pre-proc level Procedural Medications Time Medication Dose Units Method Given By 01:52 PM Oxygen 2 L/min nasal cannula Elbert Cross RN 01:54 PM Versed 2 mg Intravenous Elbert Cross RN 01:54 PM Fentanyl 50 mg Intravenous Elbert Cross RN 02:00 PM Benadryl 25 mg Intravenous Elbert Cross RN 02:00 PM Lidocaine 2% 18 ml Subcutaneous Lorenza Moreira MD, FACC 02:09 PM Angiomax 0.75mg/kg bolus: 13.5 ml Intravenous Elbert Cross RN 02:13 PM Angiomax 1.75mg/kg/hr: 31.5 ml Intravenous Elbert Cross RN 02:14 PM Nitroglycerin 200 mcg Intravenous Elbert Cross RN 02:20 PM Nitroglycerin 200 mcg Intravenous Lorenza Moreira MD, FACC 02:33 PM Fentanyl 25 mcg Intravenous Elbert Cross RN 02:33 PM Nitroglycerin 200 mcg Intravenous Elbert Cross RN 02:35 PM Plavix 300 mg 300 Elbert Cross RN 03:40 PM Tylenol 650 mg Orally Briana Aparicio RN ASA Classification: CLASS II- Mild systemic disease (i.e. well-controlled diabetes, hypertension, asthma, cigarette smoking) Jae Score Preprocedure Postprocedure Activity 2- Moves 4 extremities sustained head lift Activity 2- Moves 4 extremities sustained head lift Circulation 2- SBP +/= 20 points of pre-anesthetic level Circulation 2- SBP +/= 20 points of pre-anesthetic level Consciousness 2- Awake and alert oriented x 3 Consciousness 2- Awake and alert oriented x 3 O2 Saturation 2- Able to maintain O2 satruation of 92% on room air O2 Saturation 2- Able to maintain O2 satruation of 92% on room air Respiratory 2- Able to deep breathe and cough well Respiratory 2- Able to deep breathe and cough well Total Score 10 Total Score 10 Contrast Agent: Isovue Diagnostic Contrast: 162 ml Total Contrast: 162 ml Fluoro Dose: 925 mGy Procedure Log Time Note Enter By : PM CathStat : PM Vitals capture started with the following parameters, Patient=Adult, Interval=5 min, Initial Qodzfdyn=262 mmHg, Deflation Rate=5 mmHg, Cuff placed on Right Arm 01: PM Pt arrived to outside laborer 2 at 13:52 [facility] :52 PM Elbert Cross RN Position: Umbrella Frame Maker Time in: : PM Melly Null RT (R) Position: Monitor Time in: : [facility] PM Bernardo Mccoy RT (R) Position: Scrub Time in: 13:52 [facility]:52 PM Patient charges- Angio tray pack, Navilyst 3mm J, Pulse Oximetry and ACIST tubing and transducer : PM Hair removed from procedure site in procedure lab using clippers. Bilateral groin prepped with Chloraprep by Melly Null RT (R), safety strap applied then patient was draped. Skin intact. :52 PM Physician arrived 13:52 [facility] :52 PM Marcellus completed [email or web address] 01:52 PM Sign in performed according to hospital policy. [email or web address] 01:52 PM Procedure start 13:52 [facility] PM HR=69 bpm, FRVI=335/81 mmhg, SpO2=96.0 %, Resp=16 B/min, Comment=NSR 01:52 PM Case Start 01:52 PM Time: 13:52 Oxygen on at 2 L/min per nasal cannula by El[facility] Cross [facility] PM Time: 13:52 Patient comfortable and pain free: Yes [facility] PM Time: 13:53LOC: 5 = Fully awake and oriented or at pre-proc level [facility] PM Time: 13:53 Patient comfortable and pain free: Yes [facility] Time: 13:53LOC: 5 = Fully awake and oriented or at pre-proc level [facility] PM Clinical Presentation: Non-STEMI dsp:54 PM Time: 13:54 Versed 2 mg Intravenous Given by lEbert Cross RN [facility]54 PM Time: 13:54 Fentanyl 50 mg Intravenous Given by Elbert Cross RN [facility]55 PM Pressure channel 1 zeroed. 01:55 PM ASA Class CLASS II- Mild systemic disease (i.e. well-controlled diabetes, hypertension, asthma, cigarette smoking) 01:57 PM HR=75 bpm, YEPL=110/77 mmhg, SpO2=93.0 %, Resp=14 B/min, Comment=NSR 01:59 PM Time out performed according to hospital policy dsp 02:00 PM Time: 14:00 Benadryl 25 mg Intravenous Given by Elbert Cross RN [facility] 02:01 PM Time: 14:00 18 ml Lidocaine 2% to right groin Subcutaneous Given by Lorenza Moreira MD, [facility] dspell 02:01 PM Access obtained by percutaneous puncture. 5Fr 10cm Terumo [place] sheath placed in right Femoral artery. [id number] dspell 02:01 PM 5Fr FL 4 catheter inserted over the wire [facility] dspell 02:01 PM 0.035 145cm Navilyst 3mmJ wire [id number] dspell 02:01 PM LCA angiography performed in multiple views. dsp 02:02 PM HR=70 bpm, HUOM=274/78 mmhg, SpO2=93.0 %, Resp=12 B/min, Comment=NSR 02:02 PM Recorded Pressure: Ao, HR=70, Condition=Condition 1 (Aorta) Ao 115/79/95 02:04 PM Catheter removed dspell 02:04 PM 5Fr FR 4 catheter inserted over the wire [facility] dspell 02:04 PM RCA angiography performed in multiple views. dspell 02:04 PM Coronary Dominance: right dspellman 02:05 PM Recorded Pressure: Ao, HR=68, Condition=Condition 1 (Aorta) Ao 120/81/99 02:05 PM Lesion found in Mid RCA. Pre Stenosis: 100 Pre ALVARADO Flow: 0: No Flow/No perfusion dspell 02:06 PM 5Fr Pigtail catheter inserted over the wire [facility] dspell 02:06 PM Catheter selectively placed in left ventricle dspell 02:06 PM Bolus angiogram of left Ventricle complete: 8 ml/sec for a total of 24 mls dspell:06 PM Pressure channel 1 zero failed. :07 PM Pressure channel 1 zeroed. 02:07 PM Recorded Pressure: LV, HR=70, Condition=Condition 1 (Left Ventricle) LV 108/10/11 02:07 PM Recorded Pressure: LV, Ao, HR=71, Condition=Condition 1 (Left Ventricle) LV 109/20/23, (Aorta) Ao 108/65/90 02:07 PM HR=71 bpm, WCTE=739/76 mmhg, SpO2=90.0 %, Resp=18 B/min, Comment=NSR 02:08 PM Catheter removed dspell:08 PM Right Coronary, Right Posterior Descending Arteries with Right Posterolateral and Acute Marginal branches with 100 % stenosis. If graft is supplying this area, 0 % stenosis dspell:08 PM PCI Status Urgent dspell 02:08 PM PCI Indication: PCI for high risk Non-STEMI or unstable angina dspell:08 PM Time: 13:53 Patient comfortable and pain free: Yes dspell: PM Time: 13:54LOC: 4 = Oriented but drowsy dspell 02:09 PM PCI lesion in Mid RCA. dspell: PM Time: 14:09 Angiomax 0.75mg/kg bolus: 13.5 ml Intravenous Given by [place], Elbert RN Navarrete pump dspell 02:09 PM Sheath exchanged for a 6 Fr 11 cm Cordis Vilma sheath [id number] dspellman 02:09 PM 6Fr JR 4 Cordis guide catheter was used to cannulate the PCI vessel successfully. reused? No dspellman 02:10 PM .014 Prowater 180cm guide wire across target lesion- successful. reused? No dspell 02:10 PM Inflation device was opened. dspell 02:10 PM Recorded Pressure: Ao, HR=73, Condition=Condition 1 (Aorta) Ao 121/61/88 02:11 PM 2.0 mm x 15 mm Emerge Monorail balloon across target lesion- successful. reused? No dspell 02:12 PM HR=72 bpm, TOWD=469/80 mmhg, SpO2=91.0 %, Resp=22 B/min, Comment=NSR 02:12 PM Balloon inflated @ 14 fabricio for 20 seconds dspell 02:13 PM Time: 14:13 Angiomax 1.75mg/kg/hr: 31.5 ml Intravenous Given by Elbert Cross RN Navarrete pump dspell 02:14 PM Balloon catheter removed intact. dspell 02:14 PM Time: 14:14 Nitroglycerin 200 mcg Intravenous Given by Elbert Cross RN ell 02:17 PM 3.5mm x 38mm Synergy drug-eluting stent across target lesion- successful Lot #[id number] dspell 02:17 PM HR=75 bpm, MYSH=150/69 mmhg, SpO2=88.0 %, Resp=20 B/min, Comment=NSR 02:18 PM Stent deployed @ 12 fabricio for 30 seconds dspell 02:18 PM Recorded Pressure: Ao, HR=74, Condition=Condition 1 (Aorta) Ao 87/63/75 02:19 PM Stent balloon reinflated @ 16 fabricio for 20 seconds dspell 02:20 PM Stent delivery system removed intact. dspell 02:20 PM Time: 14:20 Nitroglycerin 200 mcg Intravenous Given by Lorenza Moreira MD, [facility] dspell 02:21 PM Recorded Pressure: Ao, HR=76, Condition=Condition 1 (Aorta) Ao 86/54/67 02:22 PM Guide wire removed intact. dspell 02:22 PM Guide catheter removed intact. dspellman 02:22 PM HR=78 bpm, MDYC=056/68 mmhg, SpO2=87.0 %, Resp=17 B/min, Comment=NSR 02:24 PM Time: 14:08 Patient comfortable and pain free: Yes dspellman :24 PM Time: 14:09LOC: 4 = Oriented but drowsy dspellman 02:24 PM PCI lesion in Mid LAD. Pre Stenosis: 90 Pre ALVARADO Flow: 3: Complete and Brisk Flow/Perfusion dspellman 02:24 PM PCI lesion in Mid LAD. dspellman 02:25 PM 6Fr XB LAD 3.5 Cordis guide catheter was used to cannulate the PCI vessel successfully. reused? No dspellman 02:25 PM .014 Prowater 180cm guide wire across target lesion- successful. reused? Yes dspellman 02:26 PM 2.0 mm x 15 mm Emerge Monorail balloon across target lesion- successful. reused? Yes dspellman 02:26 PM Recorded Pressure: Ao, HR=73, Condition=Condition 1 (Aorta) Ao 92/61/75 02:27 PM HR=70 bpm, SMQU=737/75 mmhg, SpO2=88.0 %, Resp=13 B/min, Comment=NSR 02:29 PM Balloon inflated @ 8 fabricio for 20 seconds dspell 02:30 PM Balloon catheter removed intact. dspellman 02:31 PM Recorded Pressure: Ao, HR=69, Condition=Condition 1 (Aorta) Ao 111/67/86 02:31 PM 3.0mm x 16mm Synergy drug-eluting stent across target lesion- successful Lot #[id number] dspellman 02:32 PM Stent deployed @ 12 fabricio for 30 seconds dspellman 02:32 PM HR=69 bpm, DIGC=054/75 mmhg, SpO2=90.0 %, Resp=23 B/min, Comment=NSR 02:33 PM Time: 14:33 Fentanyl 25 mcg Intravenous Given by Elbert Cross RN dspell 02:33 PM Stent delivery system removed intact. dspell 02:34 PM Time: 14:33 Nitroglycerin 200 mcg Intravenous Given by Elbert Cross RN dspkelsie 02:34 PM Guide wire removed intact. dspell 02:34 PM Guide catheter removed intact. dspell 02:35 PM Bolus angiogram of right Femoral complete: 4 ml/sec for a total of 7 mls 02:36 PM Time: 14:35 Plavix 300 mg 300 Given by Elbert Cross RN 02:37 PM HR=70 bpm, LJOW=775/74 mmhg, SpO2=89.0 % 02:39 PM Time: 14:24LOC: 5 = Fully awake and oriented or at pre-proc level :39 PM Time: 14:24 Patient comfortable and pain free: Yes :39 PM Procedure completed at 14:39 dspell:39 PM What is the NYHA Class? Class 2 dspell 02:39 PM Did you address ALVARADO flow and Dominance? Yes ell 02:40 PM Sign out completed: Radiation Dose 924.97 mGy Fluoro Time: 8.7 Isovue 370 - 200ml contrast 162 ml given by Lorenza Moreira MD, FACC. Complications: NoneCardiac Rehab Consult needed: YesConfirmed administered medications: Yes 02:41 PM Lesion found in Proximal RCA. Pre Stenosis: 30 Pre ALVARADO Flow: 3: Complete and Brisk Flow/Perfusion dspell 02:41 PM Lesion found in LMCA. Pre Stenosis: 20 Pre ALVARADO Flow: dspell 02:41 PM Lesion found in Proximal Circumflex. Pre Stenosis: 25 Pre ALVARADO Flow: dspell 02:41 PM Lesion found in Ramus. Pre Stenosis: 20 Pre ALVARADO Flow: dspell 02:42 PM Vitals capture stopped. 02:48 PM Patient out of room: 14:48 ell 02:48 PM Site status No bleeding/hematoma - Rt Groin as reported by Bernardo Mccoy RT (R) at 14:48 dspell 02:48 PM Opsite applied dspell 02:48 PM Report given to Briana MEYER Pt taken to Holding room Room #3. 14:48 ell 02:49 PM Delay to floor Yes ell 02:49 PM Family placed in no family available. dspell 02:49 PM Complications: None ell 02:49 PM Fluoro Time: 8.7 dspell 02:49 PM Isovue 370 - 200ml contrast 162 ml given by Lorenza Moreira MD, FACC. ell 02:49 PM Radiation Dose 924.87 mGy dspell 02:50 PM Angiomax off [email or web address] 02:55 PM Time: 14:39 Patient comfortable and pain free: Yes dspell 02:55 PM Time: 14:39LOC: 5 = Fully awake and oriented or at pre-proc level dspell 02:57 PM pt checked into dental laboratory worker HR 3. [email or web address] 03:18 PM pt voided 450cc dark yellow urine per urinal [email or web address] 04:45 PM Pt resting comfortably, family at bedside. dsp 04:57 PM sheath pulled, manual pressure held by ANAND Cross RN dspell 05:10 PM Site status No bleeding/hematoma - Rt Groin as reported by Elbert Cross RN at 17:09 dspell 05:10 PM Opsite applied dspell 05:25 PM Pt resting comfortably, dspellman 05:26 PM Site status No bleeding/hematoma - Rt Groin as reported by Elbert Cross RN at 17:26 [email or web address] 05:26 PM Opsite applied dspell 05:26 PM Report given to Nishi MEYER Pt taken to 2A Room #23. 17:26 dspell 05:26 PM Patient [facility] of room: 17:26 [facility] Complications Complication None None Hemodynamics Pressures Site Systolic/A Wave Diastolic/V Wave Mean AO 115 79 95 AO 120 81 99 LV 108 10 11 LV 109 20 23 AO 108 65 90 AO 121 61 88 AO 87 63 75 AO 86 54 67 AO 92 61 75 AO 111 67 86 Post Procedure Information Blood Pressure: 114/78 mmHg Rhythm: NSR Post procedural instructions were given Closure Device Time Device Success/Fail 03/15/2017 5:23:00 PM Manual Compression Successful Site Checks Time Location Status Staff Sheath In? Note 02:48 PM Rt Groin No bleeding/hematoma Bernardo Mccoy RT (R) Yes 02:57 PM Rt Groin No bleeding/ No Hematoma Rizwana Francis RN Yes 03:18 PM Rt Groin No bleeding/ No Hematoma Rizwana Francis RN Yes 03:30 PM Rt Groin No bleeding/ No Hematoma Briana Aparicio RN Yes 03:45 PM Rt Groin No bleeding/ No Hematoma Briana Aparicio RN Yes 04:00 PM Rt Groin No bleeding/ No Hematoma Briana Aparicio RN Yes 04:15 PM Rt Groin No bleeding/ No Hematoma [place], Elbert RN Yes 04:30 PM Rt Groin No bleeding/ No Hematoma Elbert Cross RN Yes 04:45 PM Rt Groin No bleeding/ No Hematoma Elbert Cross RN Yes 04:55 PM Rt Groin No bleeding/ No Hematoma Elbert Cross RN Sheath pulled 05:24 PM Rt Groin No bleeding/ No Hematoma Elbert Cross RN 05:26 PM Rt Groin No bleeding/hematoma Elbert Cross RN 05:09 PM Rt Groin No bleeding/hematoma Elbert Cross RN Pulses Time Site Pre-Procedure Post-Procedure Note Bilateral DP & PT 2+ 03/15/2017 2:57:00 PM Bilateral DP & PT 2+ 03/15/2017 3:19:00 PM Bilateral DP & PT 2+ 03/15/2017 3:45:00 PM Bilateral DP & PT 2+ 03/15/2017 4:15:00 PM Bilateral DP & PT 2+ 03/15/2017 4:55:00 PM Bilateral DP & PT 2+ Updated by Elbert Cross RN on 03/15/2017 5:45:25 PM electronically signed on 03/15/2017 5:49:17 PM with status of Final
--- NOTE | 2017-03-16 08:18 | Electrocardiograph Report ---
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
[2017-03-16] MEDS: Aspirin 81 MG TAB.CHEW PO SCH (09:21)
--- NOTE | 2017-03-16 09:28 | Discharge Summary ---
<Gonzalo Barr - Last Filed: 03/16/17 09:25> Date of Encounter: 03/16/17 Time of Encounter: 09:25 - Discharge Diagnosis (1) NSTEMI (non-ST elevated myocardial infarction) Priority: Primary Status: Acute (2) Upper respiratory infection Priority: Secondary Status: Resolved Qualifiers: URI type: unspecified viral URI Qualified Code(s): J06.9 - Acute upper respiratory infection, unspecified (3) Tobacco dependence due to cigarettes Priority: Secondary Status: Acute (4) DVT prophylaxis Priority: Secondary Status: Acute - Discharge Medications Prescriptions: Nitroglycerin 0.4 mg SL Q5MIN PRN #60 tab.subl PRN Reason: Chest Pain Aspirin 81 mg PO DAILY #30 tab.chew Carvedilol [Coreg] 3.125 mg PO BIDWM #60 tablet Clopidogrel [Plavix] 75 mg PO DAILY #30 tablet Rosuvastatin [Crestor] 40 mg PO HS #30 tablet Home Medications: Aspirin 81 mg PO DAILY #30 tab.chew 03/16/17 [Rx] Carvedilol [Coreg] 3.125 mg PO BIDWM #60 tablet 03/16/17 [Rx] Clopidogrel [Plavix] 75 mg PO DAILY #30 tablet 03/16/17 [Rx] Nitroglycerin 0.4 mg SL Q5MIN PRN #60 tab.subl 03/16/17 [Rx] Rosuvastatin [Crestor] 40 mg PO HS #30 tablet 03/16/17 [Rx] Allergies/Adverse Reactions: 3 Allergy/AdvReac Type Severity Reaction Status Date / Time Sulfa (Sulfonamide Allergy Hives Verified 02/27/16 09:47 Antibiotics) Procedures/tests Complete & Pending: Procedures Performed prior 72 hours Category Date Time Status Left Heart Cath [CL Cardiac Catheterization] [CL] Cold Meat Chef 03/15/17 10:34 Completed Routine ECG 12 lead ECG [ECG] AM 0600 Y 03/16/17 06:00 Ordered ECG 12 lead ECG [ECG] Routine Y 03/14/17 21:12 Completed ECG 12 lead ECG [ECG] Stat Y 03/15/17 14:50 Completed EV echocardiogram Routine Y 03/15/17 05:18 Completed Date of admission: 03/14/17 23:00 Primary care physician: PCP NONE Consults: 03/15/17 00:38 Consult to Cardiology [CONS] Routine Comment: s/p [place] 2-3 days ago Consulting Provider: Yas Ingram Reason for Consult: s/p [place] 2-3 days ago + elevated troponin -- needs cardiac cath Call Completed: No 03/15/17 14:50 Consult to Cardiac Rehabilitation-Phase1 [CONS] Routine Comment: Reason for Consult: post op PCI Call Completed: Yes Discharging clinician: Gonzalo Barr Anticipated date of discharge: 03/16/17 - Patient Status Disposition: Home, Self-Care Condition: Good Functional capacity at discharge: independent ambulation Overall status at discharge: patient is back to baseline - Discharge Instructions Follow Up With: Cardiology [facility] [Provider Group] Sudhir Ross DO [Resident] - 03/21/17 10:20 am (Please follow up as schedule...) NONE,PCP [Primary Care Provider] - Additional Instructions: Please establish with PCP by calling residency clinic at [phone] Please follow up with cardiology within 1-2 weeks of discharge - Diet and Activity Activity: increase activity as tolerated Diet: low fat, low cholesterol Hospital course: Mr. Mccoy is a 61 year old male - Time Spent with Patient Total time spent providing and/or coordinating discharge services: - Constitutional Vitals: Temp Pulse Resp BP Pulse Ox 98.4 F 72 14 106/69 93 03/16/17 07:30 03/16/17 07:30 03/16/17 07:30 03/16/17 07:30 03/16/17 07:30 General appearance: Present: cooperative, A&O X 3, pleasant, no acute distress, answers questions appropriately - Head Head exam: Present: atraumatic, normocephalic - Eye Eye exam: Present: PERRL, conjuntiva pink, sclera anicteric - Neck Neck exam general surgery: Present: supple, trachea midline. Absent: lymphadenopathy - Respiratory Respiratory exam: Present: CTAB. Absent: accessory muscle use, rales, rhonchi, wheezes - Cardiovascular Cardiovascular exam: Present: RRR, +S1, +S2. Absent: diastolic murmur, gallop, rubs, systolic murmur - GI/Abdominal GI/Abdominal exam: Present: normal bowel sounds, soft, no peritoneal signs. Absent: distended, tenderness - Extremities Exam Extremities exam: Present: warm, radial pulses palpable and symmetrical. Absent : calf tenderness, cyanotic, pedal edema - Neurological Exam Neurological exam: Present: alert, no focal deficits. Absent: facial droop, speech deficit - Skin Skin exam: Present: dry, intact <Cedric Elizalde - Last Filed: 03/16/17 13:11> Date of Encounter: 03/16/17 Procedures/tests Complete & Pending: Procedures Performed prior 72 hours Category Date Time Status Left Heart Cath [CL Cardiac Catheterization] [CL] Cold Meat Chef 03/15/17 10:34 Completed Routine ECG 12 lead ECG [ECG] AM 0600 Y 03/16/17 06:00 Ordered ECG 12 lead ECG [ECG] Routine Y 03/14/17 21:12 Completed ECG 12 lead ECG [ECG] Stat Y 03/15/17 14:50 Completed EV echocardiogram Routine Y 03/15/17 05:18 Completed Date of admission: 03/14/17 23:00 Primary care physician: PCP NONE Consults: 03/15/17 00:38 Consult to Cardiology [CONS] Routine Comment: s/p [place] 2-3 days ago Consulting Provider: Cardiology Nataly Reason for Consult: s/p [place] 2-3 days ago + elevated troponin -- needs cardiac cath Call Completed: No 03/15/17 14:50 Consult to Cardiac Rehabilitation-Phase1 [CONS] Routine Comment: Reason for Consult: post op PCI Call Completed: Yes Hospital course: Mr. Mccoy is a 61 year old male - Time Spent with Patient Total time spent providing and/or coordinating discharge services: - Constitutional Vitals: Temp Pulse Resp BP Pulse Ox 98.4 F 72 14 106/69 93 03/16/17 07:30 03/16/17 07:30 03/16/17 07:30 03/16/17 07:30 03/16/17 07:30 - Attending Attestation I personally reviewed this patient. I performed an independent exam. I agree with all findings, assessment and plan of Dr. Barr, internal medicine resident. Patient is doing well and is pain-free. Patient underwent cardiac stenting as outlined. Continue medical management for his known coronary artery disease. Medications as outlined. Outpatient cardiology follow-up.
[2017-03-16 09:35] LABS: Thyroid Stimulating Hormone 0.975 mcIU/mL (0.340-5.600)
--- NOTE | 2017-03-16 09:44 | Cardiology Progress Note ---
<Eleanor Tsang - Last Filed: 03/16/17 14:50> Date of Encounter: 03/16/17 Time of Encounter: 09:40 Assessment and Plan (1) NSTEMI (non-ST elevated myocardial infarction) Status: Acute Patient with 45 minute episode of chest pain, radiation, and dyspnea on Tuesday which subsided. ECG demonstrating q waves in inferior leads. Troponin sustained elevation, (2.74, 2.91, 3.52, 3.27 this morning). -Patient initially stated on dual anti-platelet with ASA and Plavix, and heparin drip -Echo 03/15/2017 LVEF 50-55% mild left ventricular diastolic dysfunction, normal right ventricular structure and function, no significant valvular dysfunction no pulmonary hypertension. No previous studies to compare. -LDL 126, HDL 25 on lipid panel. -03/16/2017; LHC on 03/15 demonstrates double vessel CAD, with a NARINDER to the mid RCA and a NARINDER to the proximal LAD. -Patient started on optimal medical therapy including coreg, rosuvastatin, ASA, and plavix. Patient verbalized understanding that he would have to be on dual anti-platelet therapy for 1 years. -Patient not started on DEVORAH-I secondary to blood pressure. Will FU at an outpatient. (2) Recent inferior myocardial infarction Status: Acute Patient with evidence of recent inferior OK on ECG corroborated by history. -Sustained elevated troponins. -C 03/15/2017 with two stents placed in prox LAD and mid RCA. (3) Tobacco dependence due to cigarettes Status: Acute Patient with 20 year pack history. Patient indicates he is quitting. No cigarettes in 3-4 days. -Does not want NRT at this point. Discussion w patient/family: The assessment and plan as outlined above was discussed with the patient and/or family members who expressed understanding and agreement. All questions were answered. Thank you for involving us in the care of your patient. Please call with any questions. Subjective Principal diagnosis: NSTEMI Interval history: Mr. Mccoy is a 61 yo male with PMHx of tobacco abuse who presented to [facility] on with chest pain and pressure. He underwent a LHC on 03/15/2017 with stents placed in the prox LAD and distal RCA. He is currently chest pain free. He denies shortness of breath, nausea, or diaphoresis. He denies palpitations, lightheadedness or dizziness. Patient understands the plan for potential discharge today including the medications he is to begin upon discharge. All questions were addressed. Objective Vital Signs, Last 4 Hours Temp Pulse Resp BP Pulse Ox 03/16/17 07:30 98.4 F 72 14 106/69 93 HEENT: Atraumatic, Normocephaly, Mucus Membranes Moist Neck: No JVD, Normal carotid pulses Cardiac: Reg Rate and Rhythm, Normal S1 and S2, No Murmur Lungs: Normal Breath Sounds, No Wheeze, Rales, Rhonchi Neuro: Alert and responsive, No focal deficits noted Abdomen: Soft, Non-Tender Skin: No rashes noted on visualized skin Musculoskeletal: No Chest Wall Tenderness Extremities: No Clubbing, No Cyanosis, No Edema Results 03/16/17 03:50 03/16/17 03:50 Lab Results 03/15/17 03/15/17 03/16/17 09:59 09:59 03:50 WBC 8.0 Hgb 14.9 Hct 44.4 Plt Count 219 APTT 35.6 Sodium Potassium Chloride Carbon Dioxide BUN Creatinine Glucose Calcium Troponin I 3.52 H* TSH 03/16/17 03/16/17 03:50 03:50 WBC Hgb Hct Plt Count APTT Sodium 136 Potassium 4.1 Chloride 107 Carbon Dioxide 22 L BUN 12 Creatinine 0.98 Glucose 121 H Calcium 8.3 L Troponin I 3.27 H* TSH 0.975 Consult Discharge Plan - Plan Additional Instructions: Please establish with PCP by calling residency clinic at [phone] Please follow up with cardiology within 1-2 weeks of discharge Referrals: [facility] [Provider Group] Sudhir Ross DO [Resident] - 03/21/17 10:20 am (Please follow up as schedule...) NONE,PCP [Primary Care Provider] - Prescriptions: Nitroglycerin 0.4 mg SL Q5MIN PRN #60 tab.subl PRN Reason: Chest Pain Aspirin 81 mg PO DAILY #30 tab.chew Carvedilol [Coreg] 3.125 mg PO BIDWM #60 tablet Clopidogrel [Plavix] 75 mg PO DAILY #30 tablet Rosuvastatin [Crestor] 40 mg PO HS #30 tablet <Duncan Ardon - Last Filed: 03/17/17 17:35> Date of Encounter: 03/16/17 Time of Encounter: 18:00 Assessment and Plan Discussion w patient/family: The assessment and plan as outlined above was discussed with the patient and/or family members who expressed understanding and agreement. All questions were answered. Thank you for involving us in the care of your patient. Please call with any questions. Results 03/16/17 03:50 03/16/17 03:50 - Attending Attestation I examined this patient and my medical decision-making was reviewed with the Resident Physician. I agree with the documented findings, disposition and treatment plan as described except to the extent set forth below. Chest pain has resolved. He has been up walking around, chest pain and shortness of breath has resolved. PE: Reviewed above, agree IMP: 1. NSTEMI; resolved following emergent PCI with NARINDER RCA 2. CAD - severe, now revascularized 3. Tobacco abuse, has quit smoking. Pt is at low risk for hospital discharge, is now on optimal medical tx, will follow as outpatient in two to three weeks.
--- NOTE | 2017-03-16 18:12 | Electrocardiograph Report ---
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
== END 2017-03-16 12:41 | disposition home or self-care (01) ==
LOC: 2SOUTHHOLD 21:02 → EMEROO 21:02 → 2SOUTHHOLD 03-15 01:06 → 2ANU 03-15 17:46
PROVIDERS: ADMIT Internal Medicine; ATTEND Internal Medicine

== ENCOUNTER 2019-07-18 20:58 | Observation (INO) ==
[2019-07-18] MEDS ORDERED: Ondansetron 4 MG/2 ML VIAL IVP ONE (21:29)
[2019-07-18] MEDS ORDERED: 0.9 % Sodium Chloride 1,000 ML IVC ONE (21:33)
[2019-07-18] MEDS ORDERED: cefTRIAXone 1,000 MG in Water for inj. (sterile) 10 ML IVP ONE (21:56)
[2019-07-18] MEDS ORDERED: levoFLOXacin 750 MG TABLET PO ONE (22:17)
[2019-07-18 22:19] LABS: Basophils # 0.1 K/mcL (0.0-0.2); Basophils % 0.3 %; Hematocrit 46.4 % (37.5-50.1); Hemoglobin 15.8 g/dL (12.9-16.9); Immature Granulocytes % 1.1 % (0-4); Lymphocytes # 1.1 K/mcL (0.6-4.6); Lymphocytes % 5.9 %; Mean Corpuscular HGB Conc 34.1 g/dL (31.6-35.5); Mean Corpuscular Volume 85.3 fL (83.0-100.0); Mean Platelet Volume 9.9 fL (9.4-12.4); Monocytes # 1.5 K/mcL (0.0-1.3); Monocytes % 8.5 %; Neutrophils # 15.2 K/mcL (1.6-8.9); Platelet Count 184 K/mcL (140-400); Red Blood Count 5.44 M/mcL (4.19-5.50); Red Cell Distribution Width 12.9 % (11.5-14.5); Segmented Neutrophils % 84.2 %; White Blood Count 18.1 K/mcL (4.3-11.1)
[2019-07-18 22:20] LABS: Bilirubin,Urine Moderate (Negative); Blood,Urine Large (Negative); Clarity,Urine Turbid (Clear); Glucose,Urine (UA) Normal (Normal); Ketones,Urine Trace mg/dL (Negative); Leukocyte Esterase,Urine Large (Negative); Nitrite,Urine Positive (Negative); PH,Urine 5.5 pH Units (5.0-8.0); Protein,Urine 100 mg/dL (Neg-Trace); Specific Gravity,Urine 1.022 (1.010-1.025)
[2019-07-18 22:34] LABS: Bacteria,Urine Many per hpf (None-Few); Squamous Epithelial Cell,Urine Many per lpf (None-Few); WBC,Urine TNTC per hpf (0-3)
[2019-07-18 22:37] LABS: Color,Urine Dark Yellow (Yellow)
[2019-07-18 22:39] LABS: Albumin 3.7 g/dL (3.5-5.7); Albumin/Globulin Ratio 0.8 (1.1-2.2); Bilirubin,Total 2.2 mg/dL (0.3-1.0); Calcium 8.7 mg/dL (8.6-10.3); Globulin 4.4 g/dL (2.4-3.5); Potassium 3.9 mEq/L (3.5-5.1); Total Protein 8.1 g/dL (6.4-8.9)
[2019-07-18 22:47] LABS: Hyaline Casts,Urine None Seen per lpf (None-Few); Mucus,Urine Few per lpf (Few)
[2019-07-19] MEDS ORDERED: Nicotine 2 MG GUM BC PRN (01:52)
[2019-07-19] MEDS ORDERED: Naloxone 0.4 MG/ML INJ IVP PRN (01:52)
[2019-07-19] MEDS ORDERED: Vancomycin (wt based) 1,000 MG VIAL IVPB SCH (02:00)
[2019-07-19] MEDS ORDERED: Ringers Solution, Lactated 1,000 ML IVC SCH (02:00)
[2019-07-19 02:43] LABS: Basophils % 0.2 %; Hematocrit 44.4 % (37.5-50.1); Hemoglobin 14.4 g/dL (12.9-16.9); Immature Granulocytes % 0.8 % (0-4); Lymphocytes # 1.1 K/mcL (0.6-4.6); Lymphocytes % 6.5 %; Mean Corpuscular HGB Conc 32.4 g/dL (31.6-35.5); Mean Corpuscular Hemoglobin 28.5 pg (28.0-33.3); Mean Corpuscular Volume 87.9 fL (83.0-100.0); Mean Platelet Volume 10.2 fL (9.4-12.4); Monocytes # 1.4 K/mcL (0.0-1.3); Monocytes % 8.6 %; Neutrophils # 13.8 K/mcL (1.6-8.9); Platelet Count 174 K/mcL (140-400); Red Blood Count 5.05 M/mcL (4.19-5.50); Red Cell Distribution Width 12.9 % (11.5-14.5); Segmented Neutrophils % 83.9 %; White Blood Count 16.5 K/mcL (4.3-11.1)
[2019-07-19 02:46] LABS: INR 1.7; Prothrombin Time 19.8 Seconds (9.4-12.1)
[2019-07-19] MEDS ORDERED: Vancomycin 1,500 MG/265 ML IV.SOLN IVPB SCH (03:00)
[2019-07-19 03:02] LABS: Albumin 3.5 g/dL (3.5-5.7); Albumin/Globulin Ratio 0.9 (1.1-2.2); Bilirubin,Direct 0.6 mg/dL (0.0-0.2); Bilirubin,Indirect 0.8 mg/dL (0.0-1.0); Bilirubin,Total 1.4 mg/dL (0.3-1.0); Calcium 8.2 mg/dL (8.6-10.3); Globulin 3.8 g/dL (2.4-3.5); Magnesium 1.9 mg/dL (1.6-2.6); Phosphorous 3.2 mg/dL (2.7-4.5); Total Protein 7.3 g/dL (6.4-8.9); Troponin I 0.03 ng/mL (< 0.04)
[2019-07-19] MEDS ORDERED: Calcium Gluconate 1gm/50mL 1 GM/50 ML BAG IVPB ONE (03:20)
[2019-07-19 03:24] LABS: Hepatitis B Surface Antigen Nonreactive (Nonreactive)
[2019-07-19 03:53] LABS: Hepatitis B Core IgM Nonreactive (Nonreactive)
[2019-07-19 03:54] LABS: Hepatitis C Virus Antibody Nonreactive (Nonreactive)
[2019-07-19 03:55] LABS: Hepatitis A Antibody IgM Nonreactive (Nonreactive)
[2019-07-19] MEDS: *HR* Heparin 5,000 UNIT/ML VIAL SQ SCH ×2 (05:51→16:23)
[2019-07-19] MEDS: levoFLOXacin 750 MG/150 ML 750 MG/150 ML BAG IVPB SCH (08:44)
[2019-07-19] MEDS: Nicotine 14 MG PATCH.TD24 TD SCH (08:53)
[2019-07-19] MEDS: 0.9 % Sodium Chloride 1,000 ML IVC SCH ×2 (12:32→21:41)
[2019-07-20] MEDS ORDERED: Vancomycin 1,500 MG/265 ML IV.SOLN IVPB SCH ×2 (03:00→15:00)
[2019-07-20] MEDS: Acetaminophen 325 MG TABLET PO PRN ×2 (03:15→20:28)
[2019-07-20 05:24] LABS: Hematocrit 38.1 % (37.5-50.1); Hemoglobin 12.9 g/dL (12.9-16.9); Mean Corpuscular HGB Conc 33.9 g/dL (31.6-35.5); Mean Corpuscular Hemoglobin 29.1 pg (28.0-33.3); Mean Platelet Volume 10.3 fL (9.4-12.4); Platelet Count 160 K/mcL (140-400); Red Blood Count 4.43 M/mcL (4.19-5.50); Red Cell Distribution Width 13.2 % (11.5-14.5)
[2019-07-20] MEDS: *HR* Heparin 5,000 UNIT/ML VIAL SQ SCH ×2 (05:38→16:52)
[2019-07-20 05:43] LABS: BUN/Creatinine Ratio 16 (6-26); Blood Urea Nitrogen 21 mg/dL (8-23); Calcium 7.9 mg/dL (8.6-10.3); Carbon Dioxide 20 mEq/L (23-29); Chloride 104 mEq/L (98-107); Glucose 100 mg/dL (70-105); Osmolality,Calculated 279 (280-300); Potassium 3.7 mEq/L (3.5-5.1); Sodium 133 mEq/L (136-145); eGFR For African Americans > 60 (> 60); eGFR For Non-African Americans 56 (> 60)
[2019-07-20] MEDS: levoFLOXacin 750 MG/150 ML 750 MG/150 ML BAG IVPB SCH (09:38)
[2019-07-20] MEDS: Nicotine 14 MG PATCH.TD24 TD SCH (09:38)
[2019-07-20] MEDS: Aspirin 81 MG TAB.CHEW PO SCH (09:39)
[2019-07-20] MEDS: Metoprolol XL (24 HR) Succ 25 MG TAB.ER.24H PO SCH (09:39)
[2019-07-20 19:43] LABS: Chlamydia Trachomatis DNA Ur NOT DETECTED (Not Detect)
[2019-07-21] MEDS ORDERED: Vancomycin 1,250 MG/262.5 ML IV.SOLN IVPB SCH (03:00)
[2019-07-21] MEDS: *HR* Heparin 5,000 UNIT/ML VIAL SQ SCH (06:10)
[2019-07-21] MEDS: Nicotine 14 MG PATCH.TD24 TD SCH (09:58)
[2019-07-21] MEDS: Aspirin 81 MG TAB.CHEW PO SCH (09:58)
[2019-07-21] MEDS: levoFLOXacin 750 MG/150 ML 750 MG/150 ML BAG IVPB SCH (09:58)
[2019-07-21] MEDS: Metoprolol XL (24 HR) Succ 25 MG TAB.ER.24H PO SCH (09:58)
[2019-07-21 10:44] VITALS: BP 105/69
[2019-07-21] MEDS ORDERED: Aminoglycoside Consult 1 EACH MC ONE (12:27)
== END 2019-07-21 12:28 | disposition home or self-care (01) ==
LOC: 3ANU 20:58 → EMEROOARM 20:58 → SUATTDRO 07-19 00:21 → 3ANU 07-19 01:01
PROVIDERS: ADMIT Internal Medicine; ATTEND Internal Medicine